=== PATIENT | male | born 1980 | race Caucasian/White ===

== ENCOUNTER 2025-02-28 16:12 | Emergency (ER) | payer OTHER, SELFPAY ==
[2025-02-28 16:19] VITALS: BP 141/96
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
[2025-02-28] MEDS: TYLENOL 1000 MG PO (17:33)
[2025-02-28] MEDS: MOTRIN 600 MG PO (17:33)
== END 2025-02-28 18:23 | disposition home or self-care (01) ==
LOC: EMR 16:12
PROVIDERS: EMERGENCY PHYSICIAN Student in an Organized Health Care Education/Training Program
DX: S46.302A Unspecified injury of muscle, fascia and tendon of triceps, left arm, initial encounter (principal); X58.XXXA Exposure to other specified factors, initial encounter; Y93.55 Activity, bike riding; I10 Essential (primary) hypertension
CPT/HCPCS: 99283; 73080